=== PATIENT | female | born 1950 | race Caucasian/White ===

== ENCOUNTER 2024-11-19 13:32 | Emergency (ER) | payer OTHER, SELFPAY ==
[2024-11-19 13:35] VITALS: BP 118/67
--- NOTE | 2024-11-19 14:29 | ED.GENMED ---
History of Present Illness
General
Chief Complaint: Musculo-Skeletal Complaint
Time Seen by Provider: 11/19/24 13:57
History of Present Illness
History of Present Illness:
74-year-old female presents for evaluation of right middle finger pain that began after garcia yesterday. Awoke with significant swelling and joint restriction. Denies any other falls or severe trauma. No medication taken for pain control.
Review of Systems
Review of Systems
Allergies reviewed?: Yes
All Other Systems: ROS reviewed and negative except as documented in HPI and ROS
Phy Exam
Physical Exam
Physical Exam:
GEN: Well appearing, NAD, WDWN
HEENT: Oral mucosa moist, no scleral icterus
Cardiac: Regular rate
Lung: No respiratory distress, no tachypnea
MSK: Arthritic appearing interphalangeal joints of the right hand. Passive range of motion of the right third finger PIP joint elicits pain, no crepitus, no gross deformity
Skin: Good color, no pallor or jaundice, no rashes
Neuro: AO x3, moves all extremities freely
Psych: Calm, cooperative
Course
Orders/Labs/Results
Orders:
Orders
11/19/24 13:38
CR Hand - Left Min 3 Views Urgent
Comment:
Reason For Exam: pain, swelling
Vital Signs
Initial and Last Documented VS:
Initial Vital Signs
Temp Pulse Resp BP Pulse Ox
98.0 F 63 16 118/67 97
11/19/24 13:35 11/19/24 13:35 11/19/24 13:35 11/19/24 13:35 11/19/24 13:35
Last Documented Vital Signs
Temp Pulse Resp BP Pulse Ox
98.0 F 63 16 118/67 97
11/19/24 13:35 11/19/24 13:35 11/19/24 13:35 11/19/24 13:35 11/19/24 13:35
MDM/Problems Addressed
MDM/Problems Addressed:
Likely acute inflammation related to arthritic joints, NSAIDs recommended
*Critical Care Note
Total Time (30-74mins, 75-104mins- exclusive of procedures): Not Applicable
ED Attending Note
-
Portions of this chart may have been created with voice recognition software.� Occasional wrong word or��sound alike� substitutions may have occurred due to the inherent limitations of voice recognition software.
Discharge Plan
Departure
Patient Disposition: Home (Routine Discharge)
Date of Disposition: 11/19/24
Time of Disposition: 14:31
Patient with high blood pressure during this ER visit?: No
Discharge Problem:
Sprain of right middle finger
Instructions: Finger Sprain ED
Prescriptions:
No Action
ondansetron 4 mg tablet,disintegrating
4 mg PO TIDPRN PRN (Reason: nausea/vomiting) Qty: 20 0RF
Referrals:
Haile Madrigal, DO [Family Provider] -
Activity Restrictions/Additional Instructions:
Ibuprofen 400mg every 8 hours for pain control
Interventions
Interventions:
*Risk Screen - Suicide Last Done: 11/19/24 13:35
*General Assessment Last Done: 11/19/24 13:35
*ED COVID-19 Vaccine History Last Done: 11/19/24 13:35
Discharge Date and Time
Print Language: MALAY
[2024-11-19 14:37] VITALS: BP 147/71
== END 2024-11-19 14:38 | disposition home or self-care (01) ==
LOC: EMR 13:32
PROVIDERS: EMERGENCY PHYSICIAN Emergency Medicine; FAMILY PHYSICIAN Family Medicine
DX: S63.612A Unspecified sprain of right middle finger, initial encounter (principal); X58.XXXA Exposure to other specified factors, initial encounter
CPT/HCPCS: 99283; 73130